=== PATIENT | female | born 1965 | race Two or more races ===

== ENCOUNTER 2020-01-12 05:12 | Day surgery (SDC) | payer OTHER ==
[~2020-01-12 05:12] MED LIST: ASPIR 8181 MG PO; ATORVASTATIN CA20 MG PO; FISH OIL 1,2001 EAC1 PO; FOSINOPRIL SODI10 MG PO; GLIPIZIDE XL10 MG PO; HUMALOG100 UNIT/2; LANTUS SOL100 UNIT/1; METFORMIN HCL1000 M2 PO
[2020-01-12] MEDS ORDERED: MACROBID 100 M100 MG PO (10:28)
[2020-01-12] MEDS ORDERED: TYLENOL-CODEINE1 TA1 PO (10:28)
== END 2020-01-12 14:35 | disposition home or self-care (01) ==
LOC: CIR.AMB 05:12
DX: N39.3 Stress incontinence (female) (male) (principal)
CPT/HCPCS: 57288; C1771